=== PATIENT | male | born 1985 | race African-American/Black ===

== ENCOUNTER 2016-12-02 16:15 | Emergency (ER) | payer MEDICAID ==
[~2016-12-02] VITALS: Ht 165.1 cm; Wt 82.8 kg
[~2016-12-02 16:15] MED LIST: CONDYLOX TOP; Z.0.NO CURRENT MEDS
[2016-12-02 16:38] VITALS: BP 117/64; PULSE 62; RESP 16; TEMP 97.8; O2SAT 98
--- NOTE | 2016-12-02 17:56 | PD ---
HPI Chief Complaint: Dizziness Time Seen by Provider: 17:46 Travel History International Travel<30 days: No Contact w/Intl Traveler<30days: No Traveled to known affect area: No History of Present Illness HPI This 31-year-old male says he feels like he cannot pass out. He says he feels weak and lightheaded. 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 He is having a headache today headache is in his right eye and radiates to the neck. No change in his vision. He is on no medications. He has had hernia surgery otherwise negative [facility] Past Medical History Medical History: Denies Significant Hx Diminished Hearing: No Tetanus Vaccination: Unknown Past Surgical History Other Surgery: Yes (INGUINAL HERNIA) Social History Alcohol Use: No Tobacco Use: No Substance Use: No Allergies-Medications (Allergen,Severity, Reaction): Coded Allergies: No Known Allergies (Verified , 12/02/16) Reported Meds & Prescriptions Reported Meds & Active Scripts Active Review of Systems General / Constitutional: No: Fever, Chills Eyes: No: Diploplia, Blurred Vision HENT: Positive: Lightheadedness, No: Headaches, Vertigo Cardiovascular: Positive: Chest Pain or Discomfort, No: Palpitations Respiratory: No: Shortness of Breath, Wheezing Gastrointestinal: No: Nausea, Vomiting Genitourinary: No: Urgency Musculoskeletal: No: Myalgias, Arthralgias Skin: No Rash, No Itching Endocrine: No: Heat Intolerance, Cold Intolerance Hematologic/Lymphatic: No: Easy Bruising Physical Exam Narrative GENERAL: Well-developed male SKIN: Warm and dry. HEAD: Atraumatic. Normocephalic. EYES: Pupils equal and round. No scleral icterus. No injection or drainage. ENT: No nasal bleeding or discharge. Mucous membranes pink and moist. NECK: Trachea midline. No JVD. CARDIOVASCULAR: Regular rate and rhythm. No murmur appreciated. RESPIRATORY: No accessory muscle use. Clear to auscultation. Breath sounds equal bilaterally. GASTROINTESTINAL: Abdomen soft, non-tender, nondistended. Hepatic and splenic margins not palpable. MUSCULOSKELETAL: No obvious deformities. No clubbing. No cyanosis. No edema. NEUROLOGICAL: Awake and alert. No obvious cranial nerve deficits. Motor grossly within normal limits. Normal speech. PSYCHIATRIC: Appropriate mood and affect; insight and judgment normal. Data Data Last Documented VS Vital Signs Date Time Temp Pulse Resp B/P Pulse Ox O2 Delivery O2 Flow Rate FiO2 12/02/16 19:35 72 16 114/72 100 Room Air 12/02/16 16:38 97.8 Orders Electrocardiogram (12/02/16 17:52) Complete Blood Count With Diff (12/02/16 17:52) Basic Metabolic Panel (Bmp) (12/02/16 17:52) Troponin I (12/02/16 17:52) Blood Gas Carboxyhemoglobin (12/02/16 17:52) Labs Laboratory Tests Test 12/02/16 12/02/16 17:50 18:00 White Blood Count 6.8 TH/MM3 Red Blood Count 5.43 MIL/MM3 Hemoglobin 16.2 GM/DL Hematocrit 48.5 % Mean Corpuscular Volume 89.3 FL Mean Corpuscular Hemoglobin 29.8 PG Mean Corpuscular Hemoglobin 33.4 % Concent Red Cell Distribution Width 12.1 % Platelet Count 267 TH/MM3 Mean Platelet Volume 7.9 FL Neutrophils (%) (Auto) 42.4 % Lymphocytes (%) (Auto) 47.1 % Monocytes (%) (Auto) 6.3 % Eosinophils (%) (Auto) 2.7 % Basophils (%) (Auto) 1.5 % Neutrophils # (Auto) 2.9 TH/MM3 Lymphocytes # (Auto) 3.2 TH/MM3 Monocytes # (Auto) 0.4 TH/MM3 Eosinophils # (Auto) 0.2 TH/MM3 Basophils # (Auto) 0.1 TH/MM3 CBC Comment DIFF FINAL Differential Comment Sodium Level 139 MEQ/L Potassium Level 3.6 MEQ/L Chloride Level 103 MEQ/L Carbon Dioxide Level 26.9 MEQ/L Anion Gap 9 MEQ/L Blood Urea Nitrogen 13 MG/DL Creatinine 0.98 MG/DL Estimat Glomerular Filtration 109 ML/MIN Rate Random Glucose 75 MG/DL Calcium Level 9.2 MG/DL Troponin I LESS THAN 0.02 NG/ML Arterial Blood 1.4 % Carboxyhemoglobin MDM Medical Decision Making Medical Screen Exam Complete: Yes Emergency Medical Condition: Yes Medical Record Reviewed: Yes Differential Diagnosis Differential includes carbon monoxide poisoning, viral syndrome, disequilibrium Narrative Course Carbon dioxide level is normal. EKG shows normal sinus rhythm. Lab work is unremarkable. Vital signs are stable. Patient is stable for discharge Diagnosis Primary Impression: Intermittent lightheadedness Scripts No Active Prescriptions or Reported Meds Disposition: 01 DISCHARGE HOME Condition: Stable Gualberto Glass MD Dec 02, 2016 17:55
[2016-12-02 18:03] LABS: AUTOMATED NEUTROPHIL # 2.9 TH/MM3 (1.8-7.7); BASOPHIL # 0.1 TH/MM3 (0-0.2); BASOPHIL % 1.5 % (0.0-2.0); EOSINOPHIL # 0.2 TH/MM3 (0-0.4); EOSINOPHIL % 2.7 % (0.0-4.0); HEMATOCRIT 48.5 % (39.0-51.0); HEMO FLAGS DIFF FINAL; LYMPH % 47.1 % (9.0-44.0); LYMPHOCYTE # 3.2 TH/MM3 (1.0-4.8); MEAN CELL VOLUME 89.3 FL (80.0-100.0); MEAN CORPUSCULAR HEMOGLOBIN 29.8 PG (27.0-34.0); MEAN CORPUSCULAR HGB CONC 33.4 % (32.0-36.0); MONO % 6.3 % (0.0-8.0); NEUT % 42.4 % (16.0-70.0); PLATELET COUNT 267 TH/MM3 (150-450); RED BLOOD COUNT 5.43 MIL/MM3 (4.50-5.90); RED CELL DISTRIBUTION WIDTH 12.1 % (11.6-17.2); WHITE BLOOD COUNT 6.8 TH/MM3 (4.0-11.0)
[2016-12-02 18:15] LABS: CHLORIDE 103 MEQ/L (98-107); POTASSIUM 3.6 MEQ/L (3.5-5.1); SODIUM (NA) 139 MEQ/L (136-145)
[2016-12-02 18:18] LABS: ANION GAP 9 MEQ/L (5-15); BICARBONATE 26.9 MEQ/L (21.0-32.0); BLOOD UREA NITROGEN 13 MG/DL (7-18)
[2016-12-02 18:21] LABS: GLOMERULAR FILTRATION RATE 109 ML/MIN (>89)
[2016-12-02 19:35] VITALS: BP 114/72; PULSE 72; RESP 16; O2SAT 100
[2016-12-02 19:48] VITALS: BP_SYST 120; BP_SYST 121; BP_SYST 144; BP_DIAS 60; BP_DIAS 71; BP_DIAS 72; RESP 16
--- NOTE | 2016-12-09 13:03 | EKG ---
Date Performed: 12/02/2016 Time Performed: 18:23:00 PTAGE: 31 years EKG: Sinus bradycardia with borderline 1st degree A-V block Borderline ECG NO PREVIOUS TRACING DOCTOR: Shaji Mcdaniels Interpretating Date/Time 12/09/2016 13:02:21
== END 2016-12-02 20:16 | disposition home or self-care (01) ==
LOC: PHED 16:15
DX: R42 Dizziness and giddiness (principal); R51 Headache; R00.1 Bradycardia, unspecified
CPT/HCPCS: 80048; 82375; 84484; 85025; 93005